=== PATIENT | male | born 1980 | race African-American/Black ===

== ENCOUNTER 2024-04-21 06:23 | Emergency (ER) | payer SELFPAY ==
[~2024-04-21] VITALS: Ht 188 cm; Wt 121.0 kg
[2024-04-21 06:28] VITALS: PULSE 91; O2SAT 99
[2024-04-21 06:32] VITALS: BP 169/112; RESP 16; TEMP 37.1; O2SAT 100
[2024-04-21] MEDS ORDERED: DOXY150T9 PO (07:01)
[2024-04-21] MEDS ORDERED: DIPH28.33 TP (07:02)
[2024-04-21] MEDS: CEFTRIAXONE SODIUM 1G VIAL IM ONE (07:17)
[2024-04-21] MEDS: DOXYCYCLINE HYCLATE 100MG CAPSULE PO ONE (07:17)
[2024-04-21 09:09] LABS: CLARITY URINE CLEAR (CLEAR); COLOR URINE YELLOW (YELLOW); GLUCOSE URINE NEGATIVE (NEGATIVE); KETONES URINE NEGATIVE (NEGATIVE); LEUKOCYTE ESTERASE URINE NEGATIVE (NEGATIVE); NITRITE URINE NEGATIVE (NEGATIVE); OCCULT BLOOD URINE NEGATIVE (NEGATIVE); PROTEIN URINE 1+ (NEGATIVE); SPECIFIC GRAVITY URINE 1.021 (1.005-1.030)
[2024-04-21 09:40] LABS: BACTERIA URINE NONE SEEN; RBC URINE 0-2 /hpf (0-2); SQUAMOUS EPITHELIAL CELL URINE RARE /lpf (RARE/1+); WBC URINE 0-2 /hpf (0-2); YEAST URINE NONE SEEN
[2024-04-23 04:07] LABS: CHLAMYDIA TRACHOMATIS NAA Negative (Negative); NEISSERIA GONORRHOEAE NAA Negative (Negative)
== END 2024-04-21 07:19 | disposition home or self-care (01) ==
LOC: ER 06:39
DX: Z20.2 Contact with and (suspected) exposure to infections with a predominantly sexual mode of transmission (principal); L73.9 Follicular disorder, unspecified; Z79.899 Other long term (current) drug therapy
CPT/HCPCS: 99283; 87491; 87591; 81003; 87086; 96372; J0696